=== PATIENT | female | born 1940 | race Hispanic/Latino ===

== ENCOUNTER 2018-08-09 09:30 | Emergency (ER) | payer MEDICARE | END 2018-08-09 11:11 | disposition home or self-care (01) | LOC: EDH 09:30 | DX: S00.83XA Contusion of other part of head, initial encounter (principal); I10 Essential (primary) hypertension; E78.5 Hyperlipidemia, unspecified; E11.9 Type 2 diabetes mellitus without complications; Z72.0 Tobacco use; Z88.6 Allergy status to analgesic agent; W18.39XA Other fall on same level, initial encounter; Y93.01 Activity, walking, marching and hiking; Y92.89 Other specified places as the place of occurrence of the external cause; Y99.8 Other external cause status | CPT/HCPCS: 70450 ==

== ENCOUNTER 2018-08-09 11:56 | Emergency (ER) | payer MEDICARE ==
[2018-08-09] MEDS ORDERED: ONDANSETRON ODT 4 MG TAB ONE (12:12)
== END 2018-08-09 13:32 | disposition home or self-care (01) ==
LOC: EDH 11:56
DX: R11.2 Nausea with vomiting, unspecified (principal); I10 Essential (primary) hypertension; E11.9 Type 2 diabetes mellitus without complications; E78.5 Hyperlipidemia, unspecified; Z88.6 Allergy status to analgesic agent

== ENCOUNTER → 2018-08-26 | Outpatient (CLI) | payer MEDICARE ==
[~2018-08-26] MED LIST: ALLO300T2 PO; ASPI-555 PO; ATEN100T PO; CHOL500050 PO; FENO145T37 PO; HYDR25TA PO; LEVO100T12 PO; LOSA25TA16 PO; LOVA10TA2 PO; PREG75 PO; SITA1TAB2 PO; VICOPROFEN PO
== END | disposition home or self-care (01) ==
LOC: RAH 10:36
PROVIDERS: ATTEND Neurological Surgery
DX: I62.00 Nontraumatic subdural hemorrhage, unspecified (principal)
CPT/HCPCS: 70450

== ENCOUNTER 2022-01-09 18:44 | Emergency (ER) | payer MEDICARE ==
[~2022-01-09] VITALS: Ht 152.4 cm; Wt 63.5 kg
[~2022-01-09 18:44] MED LIST changes: -ASPI-555 PO; -ATEN100T PO; +CALC-1105 PO; +CARB30DR OP; +CEFU500T67 PO; -CHOL500050 PO; +ESOM20CA31 PO; +FENO145T26 PO; -FENO145T37 PO; +FLUT110HFA IH; -HYDR25TA PO; +HYPR10GE5 OP; -LEVO100T12 PO; +LEVO88CA4 PO; -LOSA25TA16 PO; -LOVA10TA2 PO; +PROP8DRO2 OP; -SITA1TAB2 PO; -VICOPROFEN PO
[2022-01-09] MEDS ORDERED: ASPIRIN 81MG CHEW TAB PO ONE (20:30)
[2022-01-09 20:43] LABS: BASOPHILS % (AUTO) 0.6 % (0.0-5.0); EOSINOPHILS % (AUTO) 2.6 % (0.0-8.0); LYMPHOCYTES % (AUTO) 40.4 % (21.0-51.0); MEAN CORPUSCULAR HEMOGLOBIN 32.1 pg (27.0-33.0); MEAN CORPUSCULAR HGB CONC 33.3 g/dL (32.0-36.0); MEAN CORPUSCULAR VOLUME 96.2 fL (79-99); MONOCYTES % (AUTO) 7.3 % (3.0-13.0); NEUTROPHILS % (AUTO) 48.5 % (40.0-77.0); PLATELET COUNT (AUTO) 147 K/uL (130-400); RED BLOOD CELL COUNT(AUTO) 4.68 MIL/uL (4.00-5.50); RED CELL DISTRIBUTION WIDTH 16.2 % (11.0-15.5); WHITE BLOOD COUNT (AUTO) 5.3 K/uL (4.8-10.8)
[2022-01-09 20:53] LABS: CREATININE 0.8 mg/dL (0.5-1.5)
[2022-01-09 21:03] LABS: ALBUMIN 2.7 g/dL (3.5-5.0); BILIRUBIN,TOTAL 2.9 mg/dL (0.2-1.0); TOTAL PROTEIN, SERUM 7.2 g/dL (6.0-8.3)
[2022-01-09] MEDS ORDERED: HYDRALAZINE 20MG/ML VIAL ONE (22:00)
[2022-01-09] MEDS ORDERED: HYDRALAZINE 20MG/ML VIAL IV ONE (22:30)
[2022-01-09 22:54] VITALS: BP 148/49
[2022-01-09] MEDS ORDERED: AMLO-258 PO (23:32)
== END 2022-01-09 23:51 | disposition home or self-care (01) ==
LOC: EDH 18:44
DX: I10 Essential (primary) hypertension (principal); R51.9 Headache, unspecified; E78.00 Pure hypercholesterolemia, unspecified; Z88.6 Allergy status to analgesic agent; Z79.899 Other long term (current) drug therapy
CPT/HCPCS: 36415; 70450; 71045; 80053; 84484; 85025; 93005; 96374; 99285; J0360

== ENCOUNTER 2022-12-13 18:25 | Emergency (ER) | payer MEDICARE ==
[~2022-12-13] VITALS: Ht 157.5 cm; Wt 58.5 kg
[~2022-12-13 18:25] MED LIST changes: +ALBUHFA IH; -ALLO300T2 PO; +AMLO-258 PO; +ATEN100T PO; +BALS60OI TP; -CEFU500T67 PO; -ESOM20CA31 PO; +FLUT16H EN; +FURO20TA4 PO; +HYDR25TA PO; -HYPR10GE5 OP; +LACT PO; +LOSA100T58 PO; +PANT40TA PO; -PROP8DRO2 OP; +PROP8DRO2 OU
[2022-12-13 20:16] LABS: BASOPHILS % (AUTO) 1.1 % (0.0-5.0); EOSINOPHILS % (AUTO) 5.4 % (0.0-8.0); HEMATOCRIT 38.4 % (36-48); LYMPHOCYTES % (AUTO) 41.4 % (21.0-51.0); MEAN CORPUSCULAR HEMOGLOBIN 32.1 pg (27.0-33.0); MEAN CORPUSCULAR HGB CONC 33.6 g/dL (32.0-36.0); MEAN CORPUSCULAR VOLUME 95.5 fL (79-99); MONOCYTES % (AUTO) 7.8 % (3.0-13.0); PLATELET COUNT (AUTO) 97 K/uL (130-400); RED BLOOD CELL COUNT(AUTO) 4.02 MIL/uL (4.00-5.50); RED CELL DISTRIBUTION WIDTH 16.6 % (11.0-15.5); WHITE BLOOD COUNT (AUTO) 3.7 K/uL (4.8-10.8)
[2022-12-13 20:26] LABS: APPEARANCE,URINE CLEAR (CLEAR); BILIRUBIN,URINE NEGATIVE (NEGATIVE); COLOR,URINE LIGHT-YELLOW (YELLOW); GLUCOSE, URINE (UA) NEGATIVE (NEGATIVE); KETONES,URINE NEGATIVE (NEGATIVE); LEUKOCYTE ESTERASE ,URINE 25 Leu/uL (NEGATIVE); NITRATE,URINE NEGATIVE (NEGATIVE); OCCULT BLOOD,URINE NEGATIVE (NEGATIVE); PROTEIN,URINE NEGATIVE (NEGATIVE); UROBILINOGEN,URINE 0.2 mg/dL (0.2-1.0)
[2022-12-13 20:26] LABS: CREATININE 1.1 mg/dL (0.5-1.5); POTASSIUM 3.9 mmol/L (3.5-5.1)
[2022-12-13 20:30] LABS: BACTERIA,URINE MOD /HPF (None Seen); RBC,URINE 0-1 /HPF (0-1); SQUAMOUS EPITHELIAL CELL,UR RARE /HPF (0-2)
[2022-12-13 20:33] LABS: ALBUMIN 2.6 g/dL (3.5-5.0); TOTAL PROTEIN, SERUM 7.4 g/dL (6.0-8.3)
[2022-12-13] MEDS ORDERED: CEFTRIAXONE 1G VIAL IV ONE (23:00)
[2022-12-13] MEDS ORDERED: NITR100C4 PO (23:51)
[2022-12-13 23:54] VITALS: BP 136/69
== END 2022-12-14 00:06 | disposition home or self-care (01) ==
LOC: EDH 18:25
DX: N39.0 Urinary tract infection, site not specified (principal); E03.9 Hypothyroidism, unspecified; I11.0 Hypertensive heart disease with heart failure; I50.9 Heart failure, unspecified; Z20.822 Contact with and (suspected) exposure to COVID-19; Z79.899 Other long term (current) drug therapy; Z88.8 Allergy status to other drugs, medicaments and biological substances
CPT/HCPCS: 99284; 96374; 87635; 84484; 80053; 85025; 87077; 87088; 87186; 81001; 36415; 93005; C9803; J0696

== ENCOUNTER 2023-04-02 23:04 | Emergency (ER) | payer MEDICARE ==
[~2023-04-02] VITALS: Ht 152.4 cm; Wt 58.1 kg
[~2023-04-02 23:04] MED LIST changes: +AMLO-257 PO; -AMLO-258 PO; -ATEN100T PO; -BALS60OI TP; -CALC-1105 PO; -HYDR25TA PO; -LACT PO; -LOSA100T58 PO; +LOSA100T59 PO; +METO-408 PO
[2023-04-03 00:32] VITALS: BP 188/72; PULSE 77; RESP 18; O2SAT 96
[2023-04-03 01:11] LABS: BASOPHILS % (AUTO) 0.5 % (0.0-5.0); EOSINOPHILS % (AUTO) 3.2 % (0.0-8.0); HEMATOCRIT 38.6 % (36-48); LYMPHOCYTES % (AUTO) 32.9 % (21.0-51.0); MEAN CORPUSCULAR HEMOGLOBIN 31.7 pg (27.0-33.0); MEAN CORPUSCULAR HGB CONC 33.4 g/dL (32.0-36.0); MEAN CORPUSCULAR VOLUME 94.8 fL (79-99); MONOCYTES % (AUTO) 9.2 % (3.0-13.0); PLATELET COUNT (AUTO) 123 K/uL (130-400); RED BLOOD CELL COUNT(AUTO) 4.07 MIL/uL (4.00-5.50); RED CELL DISTRIBUTION WIDTH 15.3 % (11.0-15.5); WHITE BLOOD COUNT (AUTO) 5.6 K/uL (4.8-10.8)
[2023-04-03 01:17] LABS: CREATININE 0.9 mg/dL (0.5-1.5); POTASSIUM 3.5 mmol/L (3.5-5.1)
[2023-04-03 01:22] LABS: ALBUMIN 2.3 g/dL (3.5-5.0); TOTAL PROTEIN, SERUM 6.2 g/dL (6.0-8.3)
== END 2023-04-03 02:45 | disposition home or self-care (01) ==
LOC: EDH 23:04
DX: I10 Essential (primary) hypertension (principal); F03.90 Unspecified dementia, unspecified severity, without behavioral disturbance, psychotic disturbance, mood disturbance, and anxiety; R42 Dizziness and giddiness; Z79.51 Long term (current) use of inhaled steroids; Z79.899 Other long term (current) drug therapy
CPT/HCPCS: 36415; 80053; 84484; 85025; 93005

== ENCOUNTER 2023-04-22 09:00 | Emergency (ER) | payer MEDICARE ==
[2023-04-23 08:02] LABS: CREATININE 0.9 mg/dL (0.5-1.5); POTASSIUM 3.1 mmol/L (3.5-5.1)
[2023-04-23 08:03] LABS: EOSINOPHILS % (AUTO) 5.5 % (0.0-8.0); HEMATOCRIT 37.3 % (36-48); LYMPHOCYTES % (AUTO) 43.1 % (21.0-51.0); MEAN CORPUSCULAR HEMOGLOBIN 31.8 pg (27.0-33.0); MEAN CORPUSCULAR VOLUME 93.5 fL (79-99); MONOCYTES % (AUTO) 8.5 % (3.0-13.0); NEUTROPHILS % (AUTO) 41.6 % (40.0-77.0); PLATELET COUNT (AUTO) 99 K/uL (130-400); RED BLOOD CELL COUNT(AUTO) 3.99 MIL/uL (4.00-5.50); RED CELL DISTRIBUTION WIDTH 15.5 % (11.0-15.5)
[2023-04-23 08:07] LABS: BASOPHILS # (AUTO) 0.04 K/uL (0.00-0.20); EOSINOPHILS # (AUTO) 0.22 K/uL (0.00-0.70); IMMATURE GRANULOCYTE ABSOLUTE 0.01 K/uL (0-1); LYMPHOCYTES # (AUTO) 1.7 K/uL (1.0-4.8); MONOCYTES # (AUTO) 0.3 K/uL (0.1-1.0); NEUTROPHILS # (AUTO) 1.7 K/uL (1.8-7.7)
== END 2023-04-22 11:45 | disposition home or self-care (01) ==
LOC: EDH 09:00
DX: E72.20 Disorder of urea cycle metabolism, unspecified (principal); R41.0 Disorientation, unspecified; E87.6 Hypokalemia; I10 Essential (primary) hypertension; E78.5 Hyperlipidemia, unspecified
CPT/HCPCS: 36415; 80048; 82140; 82948; 84484; 85025; 93005

== ENCOUNTER 2023-05-18 10:17 | Emergency (ER) | payer MEDICARE ==
[~2023-05-18] VITALS: Ht 152.4 cm; Wt 58.1 kg
[2023-05-18 11:26] VITALS: BP 116/87; PULSE 68; RESP 18; O2SAT 97
[2023-05-18 11:50] LABS: APPEARANCE,URINE CLOUDY (CLEAR); BILIRUBIN,URINE NEGATIVE (NEGATIVE); COLOR,URINE YELLOW (YELLOW); GLUCOSE, URINE (UA) NEGATIVE (NEGATIVE); KETONES,URINE NEGATIVE (NEGATIVE); LEUKOCYTE ESTERASE ,URINE 500 Leu/uL (NEGATIVE); NITRATE,URINE NEGATIVE (NEGATIVE); PROTEIN,URINE NEGATIVE (NEGATIVE)
[2023-05-18 11:52] LABS: ADD UA MICROSCOPIC YES
[2023-05-18 11:54] LABS: BACTERIA,URINE RARE /HPF (None Seen); SQUAMOUS EPITHELIAL CELL,UR RARE /HPF (0-2); UNCLASSIFIED CRYSTAL 4 /HPF (None Seen); WBC CLUMP FEW /HPF (0-1); WBC,URINE TNTC /HPF (0-1); YEAST,URINE BUDDING MOD /HPF (None Seen)
[2023-05-18 14:22] LABS: BASOPHILS # (AUTO) 0.02 K/uL (0.00-0.20); BASOPHILS % (AUTO) 0.5 % (0.0-5.0); EOSINOPHILS % (AUTO) 2.7 % (0.0-8.0); HEMATOCRIT 33.1 % (36-48); IMMATURE GRANULOCYTE ABSOLUTE 0.01 K/uL (0-1); LYMPHOCYTES # (AUTO) 1.3 K/uL (1.0-4.8); LYMPHOCYTES % (AUTO) 35.5 % (21.0-51.0); MEAN CORPUSCULAR HGB CONC 34.4 g/dL (32.0-36.0); MONOCYTES # (AUTO) 0.3 K/uL (0.1-1.0); MONOCYTES % (AUTO) 7.7 % (3.0-13.0); NEUTROPHILS % (AUTO) 53.3 % (40.0-77.0); PLATELET COUNT (AUTO) 102 K/uL (130-400); RED BLOOD CELL COUNT(AUTO) 3.56 MIL/uL (4.00-5.50); RED CELL DISTRIBUTION WIDTH 16.5 % (11.0-15.5); WHITE BLOOD COUNT (AUTO) 3.7 K/uL (4.8-10.8)
[2023-05-18 14:34] LABS: CREATININE 0.9 mg/dL (0.5-1.5); POTASSIUM 3.6 mmol/L (3.5-5.1)
[2023-05-18 14:43] LABS: ALBUMIN 2.3 g/dL (3.5-5.0); TOTAL PROTEIN, SERUM 5.9 g/dL (6.0-8.3)
[2023-05-18] MEDS ORDERED: CEPH500B PO (14:56)
== END 2023-05-18 16:19 | disposition home or self-care (01) ==
LOC: EDH 10:17
DX: N39.0 Urinary tract infection, site not specified (principal); I10 Essential (primary) hypertension; E78.00 Pure hypercholesterolemia, unspecified; I21.9 Acute myocardial infarction, unspecified; Z79.899 Other long term (current) drug therapy; Z88.8 Allergy status to other drugs, medicaments and biological substances
CPT/HCPCS: 36415; 80053; 81001; 82550; 84484; 85025; 87077; 87088; 87186; 93005

== ENCOUNTER 2023-08-13 16:20 | Emergency (ER) | payer MEDICARE ==
[~2023-08-13] VITALS: Ht 152.4 cm; Wt 56.2 kg
[~2023-08-13 16:20] MED LIST changes: +CEPH500B PO
[2023-08-13] MEDS ORDERED: IPRATROPIUM/ALBUTEROL SULFATE 3 ML SOLUTION IH ONE (16:30)
[2023-08-13 17:04] VITALS: PULSE 69; RESP 18
[2023-08-13 17:18] LABS: HEMATOCRIT 37.3 % (36-48); MEAN CORPUSCULAR HEMOGLOBIN 31.9 pg (27.0-33.0); MEAN CORPUSCULAR VOLUME 96.9 fL (79-99); PLATELET COUNT (AUTO) 80 K/uL (130-400); RED BLOOD CELL COUNT(AUTO) 3.85 MIL/uL (4.00-5.50); WHITE BLOOD COUNT (AUTO) 4.7 K/uL (4.8-10.8)
[2023-08-13 17:27] LABS: SARS-CoV-2, RNA, NAAT NEGATIVE SARS CoV-2 (NEGATIVE)
[2023-08-13 17:32] LABS: INFLUENZA TYPE A Negative For Type A (NEGATIVE); INFLUENZA TYPE B Negative For Type B (NEGATIVE)
[2023-08-13 17:46] LABS: POTASSIUM 3.8 mmol/L (3.5-5.1)
[2023-08-13 17:51] LABS: ALBUMIN 2.5 g/dL (3.5-5.0); BILIRUBIN,TOTAL 3.2 mg/dL (0.2-1.0)
[2023-08-13 17:52] LABS: RAPID GROUP A STREP positive (NEGATIVE)
[2023-08-13] MEDS ORDERED: AMOX500T2 PO (19:21)
[2023-08-13 19:43] VITALS: BP 122/62; PULSE 62; RESP 17; O2SAT 98
== END 2023-08-13 19:49 | disposition home or self-care (01) ==
LOC: EDH 16:20
DX: R06.02 Shortness of breath (principal); I50.32 Chronic diastolic (congestive) heart failure; J02.0 Streptococcal pharyngitis; E78.00 Pure hypercholesterolemia, unspecified; I11.0 Hypertensive heart disease with heart failure; Z79.51 Long term (current) use of inhaled steroids; Z79.899 Other long term (current) drug therapy; Z20.822 Contact with and (suspected) exposure to COVID-19
CPT/HCPCS: 99285; 71045; 87635; 84484; 80053; 83880; 85027; 87880; 87804 ×2; 36415; 93005; 94640; C9803

== ENCOUNTER 2023-08-26 07:08 | Inpatient (IN) | payer MEDICARE ==
[2023-08-26] VITALS (10 sets, daily range): BP systolic 130–167; BP diastolic 45–86; PULSE 69–114; RESP 16–22; O2SAT 97
[~2023-08-26] VITALS: Ht 152.4 cm; Wt 57.8 kg
[~2023-08-26 07:08] MED LIST changes: +AMOX500T2 PO
[2023-08-26] MEDS ORDERED: ENOXAPARIN SODIUM 40 MG/0.4 ML SYRINGE SQ ONE (07:30)
[2023-08-26] MEDS ORDERED: CEFTRIAXONE 2GM VIAL IVPB ONE (07:30)
[2023-08-26] MEDS ORDERED: NITROGLYCERIN 1GM OINT 1 INCH/1GM TD ONE (07:30)
[2023-08-26] MEDS ORDERED: ASPIRIN 325MG TAB PO ONE (07:30)
[2023-08-26] MEDS ORDERED: IPRATROPIUM/ALBUTEROL SULFATE 3 ML SOLUTION IH ONE (07:30)
[2023-08-26 08:20] LABS: ABG BASE EXCESS -2.5 mmol/L (-2.0-3.0); ABG HCO3 20.8 mmol/L (21.0-28.0); ABG OXYGEN SATURATION 92.8 % (95.0-99.0); ABG PCO2 32 mmHg (32-45); ABG PH 7.429 (7.35-7.450); DEVICE COMMENT RR; PO2, ARTERIAL BG 62.6 mmHg (83.0-108.0); VENT MODE, BG NC (ROOM AIR)
[2023-08-26 08:24] LABS: INR 1.54 (0.85-1.15); PROTHROMBIN TIME 17.4 SEC (9.6-11.6)
[2023-08-26 08:25] LABS: PARTIAL THROMBOPLASTIN TIME 33.8 SEC (26.3-35.5)
[2023-08-26 08:35] LABS: B-TYPE NATRIURETIC PEPTIDE 319 pg/mL (0-100); BASOPHILS # (AUTO) 0.05 K/uL (0.00-0.20); BASOPHILS % (AUTO) 0.9 % (0.0-5.0); EOSINOPHILS % (AUTO) 5.3 % (0.0-8.0); HEMATOCRIT 33.4 % (36-48); IMMATURE GRANULOCYTE ABSOLUTE 0.04 K/uL (0-1); LYMPHOCYTES # (AUTO) 1.1 K/uL (1.0-4.8); LYMPHOCYTES % (AUTO) 19.4 % (21.0-51.0); MEAN CORPUSCULAR HEMOGLOBIN 32.2 pg (27.0-33.0); MEAN CORPUSCULAR HGB CONC 33.2 g/dL (32.0-36.0); MEAN CORPUSCULAR VOLUME 96.8 fL (79-99); MONOCYTES # (AUTO) 0.3 K/uL (0.1-1.0); NEUTROPHILS # (AUTO) 3.8 K/uL (1.8-7.7); NEUTROPHILS % (AUTO) 67.7 % (40.0-77.0); PLATELET COUNT (AUTO) 49 K/uL (130-400); RED BLOOD CELL COUNT(AUTO) 3.45 MIL/uL (4.00-5.50); RED CELL DISTRIBUTION WIDTH 18.7 % (11.0-15.5); WHITE BLOOD COUNT (AUTO) 5.6 K/uL (4.8-10.8)
[2023-08-26 08:49] LABS: BILIRUBIN,TOTAL 3.7 mg/dL (0.2-1.0); TOTAL PROTEIN, SERUM 6.1 g/dL (6.0-8.3)
[2023-08-26] MEDS ORDERED: POTASSIUM BICARB/CIT AC 25 MEQ TABLET.EFF PO ONE (09:00)
[2023-08-26 10:50] LABS: APPEARANCE,URINE CLOUDY (CLEAR); BILIRUBIN,URINE NEGATIVE (NEGATIVE); COLOR,URINE YELLOW (YELLOW); GLUCOSE, URINE (UA) NEGATIVE (NEGATIVE); KETONES,URINE NEGATIVE (NEGATIVE); LEUKOCYTE ESTERASE ,URINE 75 Leu/uL (NEGATIVE); NITRATE,URINE NEGATIVE (NEGATIVE); OCCULT BLOOD,URINE SMALL (NEGATIVE); PH,URINE 5.5 (5.0-8.0); PROTEIN,URINE 20 mg/dL (NEGATIVE); UROBILINOGEN,URINE 0.2 mg/dL (0.2-1.0)
[2023-08-26 10:55] LABS: ADD UA MICROSCOPIC YES
[2023-08-26 11:00] LABS: BACTERIA,URINE FEW /HPF (None Seen); MUCUS,URINE RARE LPF (None Seen); SQUAMOUS EPITHELIAL CELL,UR RARE /HPF (0-2); TRANSITIONAL EPI CELLS,URINE FEW /HPF (None Seen); WBC,URINE 26-50 /HPF (0-1)
[2023-08-26] MEDS ORDERED: AMLODIPINE 5 MG TAB PO ONE (11:30)
[2023-08-26] MEDS ORDERED: AZITHROMYCIN 250 MG TABLET PO ONE (11:30)
[2023-08-26] MEDS ORDERED: 0.9%NACL 1000ML 500 ML IV ONE (12:30)
[2023-08-26 12:31] LABS: THYROID STIMULATING HORMONE 3.21 uIU/mL (0.36-3.74)
[2023-08-26] MEDS ORDERED: SODIUM CHLORIDE 3% FOR INHALATION 4 ML/AMP VIAL.NEB IH ONE ×2 (12:36→23:30)
[2023-08-26] MEDS: IPRATROPIUM/ALBUTEROL SULFATE 3 ML SOLUTION IH SCH ×3 (12:47→23:39)
[2023-08-26] MEDS: FUROSEMIDE 40 MG TABLET PO SCH ×2 (13:10→20:14)
[2023-08-26] MEDS ORDERED: HYDRALAZINE 20MG/ML VIAL IV PRN (16:30)
[2023-08-26] MEDS ORDERED: LOSARTAN 50 MG TABLET PO SCH (16:30)
[2023-08-26 17:19] LABS: CREATININE 1.1 mg/dL (0.5-1.5); MAGNESIUM 1.3 mg/dL (1.80-2.40); POTASSIUM 3.6 mmol/L (3.5-5.1)
[2023-08-26] MEDS: MAGNESIUM 2GM PREMIX 50ML 50 ML IV PRN ×2 (18:35→22:50)
[2023-08-26] MEDS ORDERED: LACTULOSE 20 GM/30 ML UDCUP PO PRN (21:00)
[2023-08-27] VITALS (14 sets, daily range): BP systolic 93–133; BP diastolic 44–58; PULSE 92–119; RESP 16–20; O2SAT 95–98
[2023-08-27] MEDS ORDERED: GUAIFENESIN-DM 200/20 MG 10 ML PO PRN (00:48)
[2023-08-27] MEDS: FUROSEMIDE 40 MG TABLET PO SCH ×3 (05:38→21:36)
[2023-08-27] MEDS ORDERED: SODIUM CHLORIDE 3% FOR INHALATION 4 ML/AMP VIAL.NEB IH ONE ×2 (06:10→11:01)
[2023-08-27] MEDS ORDERED: AMLO-257 PO (06:18)
[2023-08-27] MEDS ORDERED: ROPI2TAB29 PO (06:18)
[2023-08-27] MEDS ORDERED: METO-408 PO (06:18)
[2023-08-27] MEDS ORDERED: LOSA50TA64 PO (06:18)
[2023-08-27] MEDS ORDERED: NITR0.4T50 SL (06:18)
[2023-08-27] MEDS ORDERED: ALBU18HF7 IH (06:18)
[2023-08-27] MEDS ORDERED: SYMB8060 IH (06:18)
[2023-08-27] MEDS ORDERED: FURO20TA4 PO (06:18)
[2023-08-27] MEDS ORDERED: PREG75CA76 PO (06:18)
[2023-08-27] MEDS ORDERED: FENO145T26 PO (06:18)
[2023-08-27] MEDS ORDERED: FLUT110HFA IH ×2 (06:18)
[2023-08-27] MEDS ORDERED: LEVO88CA4 PO (06:18)
[2023-08-27] MEDS ORDERED: RIFA550T PO (06:18)
[2023-08-27] MEDS ORDERED: LACT10SO95 PO (06:18)
[2023-08-27] MEDS ORDERED: PANT20TA18 PO (06:18)
[2023-08-27] MEDS: IPRATROPIUM/ALBUTEROL SULFATE 3 ML SOLUTION IH SCH ×2 (07:05→11:35)
[2023-08-27 08:36] LABS: HEMATOCRIT 28.8 % (36-48); MEAN CORPUSCULAR HEMOGLOBIN 32.5 pg (27.0-33.0); MEAN CORPUSCULAR HGB CONC 33.3 g/dL (32.0-36.0); MEAN CORPUSCULAR VOLUME 97.6 fL (79-99); RED BLOOD CELL COUNT(AUTO) 2.95 MIL/uL (4.00-5.50); RED CELL DISTRIBUTION WIDTH 18.7 % (11.0-15.5); WHITE BLOOD COUNT (AUTO) 4.7 K/uL (4.8-10.8)
[2023-08-27 08:45] LABS: CREATININE 1.1 mg/dL (0.5-1.5); POTASSIUM 3.1 mmol/L (3.5-5.1)
[2023-08-27 08:49] LABS: ALBUMIN 1.9 g/dL (3.5-5.0); BILIRUBIN,TOTAL 3.2 mg/dL (0.2-1.0); MAGNESIUM 2.4 mg/dL (1.80-2.40); TOTAL PROTEIN, SERUM 5.6 g/dL (6.0-8.3)
[2023-08-27] MEDS ORDERED: NON-FORMULARY MEDICATION 1 EACH (Ropinirole HCl 2 MG) PO SCH (09:00)
[2023-08-27] MEDS ORDERED: NITROGLYCERIN 0.4 MG SL TAB SL SCH (09:00)
[2023-08-27] MEDS: LOSARTAN 50 MG TABLET PO SCH (10:07)
[2023-08-27] MEDS: RIFAXIMIN 550 MG TABLET PO SCH ×2 (10:07→21:36)
[2023-08-27] MEDS: ROPINIROLE HCL 1 MG TABLET PO SCH (10:08)
[2023-08-27] MEDS: AMLODIPINE 5 MG TAB PO SCH (10:08)
[2023-08-27] MEDS: FLUTICASONE PROPIONATE IH SCH ×3 (10:08→22:36)
[2023-08-27] MEDS: PANTOPRAZOLE 40 MG TAB DR PO SCH (10:08)
[2023-08-27] MEDS: FENOFIBRATE NANOCRYSTALLIZED 145 MG TAB PO SCH (10:08)
[2023-08-27] MEDS: CEFTRIAXONE 2GM VIAL IVPB SCH (10:09)
[2023-08-27] MEDS: SYMBICORT 80-4.5 MCG INHALER IH SCH ×2 (10:09→22:05)
[2023-08-27] MEDS ORDERED: POTASSIUM CHLORIDE 20MEQ/100ML 100 ML IV ONE (10:30)
[2023-08-27] MEDS ORDERED: KCL 20 MEQ ERTAB PO ONE (10:30)
[2023-08-27] MEDS ORDERED: ALBUTEROL SULFATE IH SCH (12:00)
[2023-08-27] MEDS: AZITHROMYCIN 250 MG TABLET PO SCH (13:09)
[2023-08-27 13:49] LABS: SARS-CoV-2, RNA, NAAT NEGATIVE SARS CoV-2 (NEGATIVE)
[2023-08-27 13:52] LABS: INFLUENZA TYPE A Negative For Type A (NEGATIVE); INFLUENZA TYPE B Negative For Type B (NEGATIVE)
[2023-08-27] MEDS: IPRATROPIUM 0.5 MG/2.5 ML INH IH SCH (19:49)
[2023-08-27] MEDS ORDERED: KCL 20 MEQ ERTAB PO PRN (21:30)
[2023-08-27] MEDS ORDERED: DEXTROSE 50%-WATER 50 ML DISP.SYRIN IV PRN (21:30)
[2023-08-27] MEDS ORDERED: GLUCAGON 1MG KIT 1 MG ML IM PRN (21:30)
[2023-08-27] MEDS ORDERED: POTASSIUM CHLORIDE 20MEQ/100ML 100 ML IV PRN ×2 (21:30)
[2023-08-28] VITALS (19 sets, daily range): BP systolic 98–134; BP diastolic 49–62; PULSE 66–99; RESP 16–24; O2SAT 88–96
[2023-08-28] MEDS: IPRATROPIUM 0.5 MG/2.5 ML INH IH SCH ×6 (00:04→19:39)
[2023-08-28] MEDS: ACETYLCYSTEINE 10% 100MG/ML 4ML VIAL IH SCH ×3 (00:04→19:39)
[2023-08-28] MEDS: POTASSIUM CHLORIDE 10% ELIXIR 20 MEQ/15 ML UDCUP PO PRN ×2 (01:14→02:30)
[2023-08-28 04:54] LABS: HEMATOCRIT 27.3 % (36-48); MEAN CORPUSCULAR HEMOGLOBIN 32.6 pg (27.0-33.0); MEAN CORPUSCULAR HGB CONC 32.6 g/dL (32.0-36.0); RED BLOOD CELL COUNT(AUTO) 2.73 MIL/uL (4.00-5.50); RED CELL DISTRIBUTION WIDTH 18.6 % (11.0-15.5); WHITE BLOOD COUNT (AUTO) 3.3 K/uL (4.8-10.8)
[2023-08-28 05:10] LABS: ALBUMIN 1.7 g/dL (3.5-5.0); CREATININE 1.1 mg/dL (0.5-1.5); MAGNESIUM 1.9 mg/dL (1.80-2.40); POTASSIUM 4.5 mmol/L (3.5-5.1); TOTAL PROTEIN, SERUM 5.1 g/dL (6.0-8.3)
[2023-08-28] MEDS: LEVOTHYROXINE 88 MCG TABLET PO SCH (06:27)
[2023-08-28] MEDS: FUROSEMIDE 40 MG TABLET PO SCH ×3 (06:28→21:47)
[2023-08-28] MEDS: MAGNESIUM 2GM PREMIX 50ML 50 ML IV PRN (06:29)
[2023-08-28] MEDS ORDERED: NON-FORMULARY MEDICATION 1 EACH (Levothyroxine Sodium (Levothyroxine) 88 MCG) PO SCH (07:30)
[2023-08-28] MEDS: METOPROLOL SUCCINATE 25 MG TAB.SR.24H PO SCH (10:12)
[2023-08-28] MEDS: AZITHROMYCIN 250 MG TABLET PO SCH (10:12)
[2023-08-28] MEDS: LOSARTAN 50 MG TABLET PO SCH (10:13)
[2023-08-28] MEDS: FENOFIBRATE NANOCRYSTALLIZED 145 MG TAB PO SCH (10:13)
[2023-08-28] MEDS: RIFAXIMIN 550 MG TABLET PO SCH ×2 (10:13→21:47)
[2023-08-28] MEDS: ROPINIROLE HCL 1 MG TABLET PO SCH (10:13)
[2023-08-28] MEDS: PANTOPRAZOLE 40 MG TAB DR PO SCH (10:13)
[2023-08-28] MEDS: PREGABALIN 75 MG CAPSULE PO SCH (10:13)
[2023-08-28] MEDS: AMLODIPINE 5 MG TAB PO SCH (10:13)
[2023-08-28] MEDS: SYMBICORT 80-4.5 MCG INHALER IH SCH ×2 (10:14→21:51)
[2023-08-28] MEDS: CEFTRIAXONE 2GM VIAL IVPB SCH (10:15)
[2023-08-28] MEDS: FLUTICASONE PROPIONATE IH SCH ×2 (10:18→21:51)
[2023-08-28] MEDS ORDERED: SPIRONOLACTONE 25 MG TAB PO ONE (13:00)
[2023-08-28] MEDS: SPIRONOLACTONE 25 MG TAB PO SCH (21:47)
[2023-08-29] VITALS (14 sets, daily range): BP systolic 104–127; BP diastolic 45–61; PULSE 64–95; RESP 16–22; O2SAT 95–99
[2023-08-29] MEDS: IPRATROPIUM 0.5 MG/2.5 ML INH IH SCH ×6 (01:53→22:01)
[2023-08-29 04:10] LABS: HEMATOCRIT 31.4 % (36-48); MEAN CORPUSCULAR HEMOGLOBIN 32.2 pg (27.0-33.0); MEAN CORPUSCULAR HGB CONC 32.8 g/dL (32.0-36.0); MEAN CORPUSCULAR VOLUME 98.1 fL (79-99); RED BLOOD CELL COUNT(AUTO) 3.2 MIL/uL (4.00-5.50); RED CELL DISTRIBUTION WIDTH 17.8 % (11.0-15.5); WHITE BLOOD COUNT (AUTO) 4.1 K/uL (4.8-10.8)
[2023-08-29 04:32] LABS: ALBUMIN 1.8 g/dL (3.5-5.0); BILIRUBIN,TOTAL 2.2 mg/dL (0.2-1.0); MAGNESIUM 1.9 mg/dL (1.80-2.40); POTASSIUM 3.8 mmol/L (3.5-5.1); TOTAL PROTEIN, SERUM 5.5 g/dL (6.0-8.3)
[2023-08-29] MEDS: LEVOTHYROXINE 88 MCG TABLET PO SCH (06:23)
[2023-08-29] MEDS: FUROSEMIDE 40 MG TABLET PO SCH ×3 (06:23→22:01)
[2023-08-29] MEDS: ACETYLCYSTEINE 10% 100MG/ML 4ML VIAL IH SCH ×2 (06:52→18:16)
[2023-08-29] MEDS: PREGABALIN 75 MG CAPSULE PO SCH (08:35)
[2023-08-29] MEDS: PANTOPRAZOLE 40 MG TAB DR PO SCH (08:36)
[2023-08-29] MEDS: AMLODIPINE 5 MG TAB PO SCH (08:36)
[2023-08-29] MEDS: SPIRONOLACTONE 25 MG TAB PO SCH ×2 (08:36→20:15)
[2023-08-29] MEDS: METOPROLOL SUCCINATE 25 MG TAB.SR.24H PO SCH (08:36)
[2023-08-29] MEDS: LOSARTAN 50 MG TABLET PO SCH (08:36)
[2023-08-29] MEDS: RIFAXIMIN 550 MG TABLET PO SCH ×2 (08:36→20:12)
[2023-08-29] MEDS: FENOFIBRATE NANOCRYSTALLIZED 145 MG TAB PO SCH (08:36)
[2023-08-29] MEDS: ROPINIROLE HCL 1 MG TABLET PO SCH (08:36)
[2023-08-29] MEDS: CEFTRIAXONE 2GM VIAL IVPB SCH (08:37)
[2023-08-29] MEDS: SYMBICORT 80-4.5 MCG INHALER IH SCH ×2 (08:51→22:01)
[2023-08-29] MEDS: FLUTICASONE PROPIONATE IH SCH ×2 (08:52→22:01)
[2023-08-29] MEDS: AZITHROMYCIN 250 MG TABLET PO SCH (12:40)
[2023-08-29] MEDS ORDERED: FUROSEMIDE 40MG VIAL IV STA (13:57)
[2023-08-29] MEDS ORDERED: IPRATROPIUM/ALBUTEROL SULFATE 3 ML SOLUTION IH SCH (17:00)
[2023-08-29] MEDS ORDERED: IPRATROPIUM/ALBUTEROL SULFATE 3 ML SOLUTION IH ONE (17:02)
[2023-08-29 17:03] LABS: ABG BASE EXCESS 1.2 mmol/L (-2.0-3.0); ABG HCO3 26.2 mmol/L (21.0-28.0); ABG OXYGEN SATURATION 80.5 % (95.0-99.0); ABG PCO2 43 mmHg (32-45); ABG PH 7.404 (7.35-7.450); PO2, ARTERIAL BG < 45.0 mmHg (83.0-108.0); VENT MODE, BG 4L NC (ROOM AIR)
[2023-08-30] VITALS (15 sets, daily range): BP systolic 96–136; BP diastolic 41–55; PULSE 60–90; RESP 16–20; O2SAT 90–98
[2023-08-30 04:09] LABS: HEMATOCRIT 33.9 % (36-48); MEAN CORPUSCULAR HGB CONC 32.4 g/dL (32.0-36.0); MEAN CORPUSCULAR VOLUME 98.5 fL (79-99); RED BLOOD CELL COUNT(AUTO) 3.44 MIL/uL (4.00-5.50); RED CELL DISTRIBUTION WIDTH 17.4 % (11.0-15.5); WHITE BLOOD COUNT (AUTO) 4.7 K/uL (4.8-10.8)
[2023-08-30 04:31] LABS: ALBUMIN 1.7 g/dL (3.5-5.0); MAGNESIUM 1.5 mg/dL (1.80-2.40); POTASSIUM 3.8 mmol/L (3.5-5.1); TOTAL PROTEIN, SERUM 5.4 g/dL (6.0-8.3)
[2023-08-30] MEDS: FUROSEMIDE 40 MG TABLET PO SCH (05:48)
[2023-08-30] MEDS: LEVOTHYROXINE 88 MCG TABLET PO SCH (05:48)
[2023-08-30] MEDS: ACETYLCYSTEINE 10% 100MG/ML 4ML VIAL IH SCH (07:10)
[2023-08-30] MEDS: IPRATROPIUM 0.5 MG/2.5 ML INH IH SCH ×3 (07:10→14:46)
[2023-08-30] MEDS ORDERED: MAGNESIUM 2GM PREMIX 50ML 50 ML IV SCH (08:30)
[2023-08-30] MEDS: FENOFIBRATE NANOCRYSTALLIZED 145 MG TAB PO SCH (08:42)
[2023-08-30] MEDS: ROPINIROLE HCL 1 MG TABLET PO SCH (08:43)
[2023-08-30] MEDS: PREGABALIN 75 MG CAPSULE PO SCH (08:43)
[2023-08-30] MEDS: CEFTRIAXONE 2GM VIAL IVPB SCH (08:43)
[2023-08-30] MEDS: LOSARTAN 50 MG TABLET PO SCH (08:43)
[2023-08-30] MEDS: SPIRONOLACTONE 25 MG TAB PO SCH (08:43)
[2023-08-30] MEDS: METOPROLOL SUCCINATE 25 MG TAB.SR.24H PO SCH (08:43)
[2023-08-30] MEDS: AMLODIPINE 5 MG TAB PO SCH (08:43)
[2023-08-30] MEDS: PANTOPRAZOLE 40 MG TAB DR PO SCH (08:43)
[2023-08-30] MEDS: RIFAXIMIN 550 MG TABLET PO SCH (08:43)
[2023-08-30] MEDS: POTASSIUM CHLORIDE 10% ELIXIR 20 MEQ/15 ML UDCUP PO PRN (08:44)
[2023-08-30] MEDS: FLUTICASONE PROPIONATE IH SCH (08:53)
[2023-08-30] MEDS: SYMBICORT 80-4.5 MCG INHALER IH SCH (08:53)
[2023-08-30] MEDS ORDERED: SPIR25TA6 PO (10:23)
[2023-08-30] MEDS ORDERED: BUME1TAB7 PO (10:23)
[2023-08-30] MEDS: AZITHROMYCIN 250 MG TABLET PO SCH (12:25)
[2023-08-30] MEDS ORDERED: BUMETANIDE 1MG/4ML VIAL IVP SCH (21:00)
== END 2023-08-30 17:45 | disposition hospice, home (50) | DRG 871 ==
LOC: EDH 07:08 → EDHIP 11:30 → 2AH 14:00 → 4AH 08-28 14:55
PROVIDERS: ADMIT Internal Medicine; ATTEND Internal Medicine
PROC: 5A09357 Assistance with Respiratory Ventilation, Less than 24 Consecutive Hours, Continuous Positive Airway Pressure (ICD-10-PCS; principal; 2023-08-29)
PROC: 5A09357 Assistance with Respiratory Ventilation, Less than 24 Consecutive Hours, Continuous Positive Airway Pressure (ICD-10-PCS; 2023-08-30)
DX: A41.9 Sepsis, unspecified organism (principal); I50.33 Acute on chronic diastolic (congestive) heart failure; J18.9 Pneumonia, unspecified organism; J96.01 Acute respiratory failure with hypoxia; E87.0 Hyperosmolality and hypernatremia; J98.11 Atelectasis; E46 Unspecified protein-calorie malnutrition; I11.0 Hypertensive heart disease with heart failure; D69.59 Other secondary thrombocytopenia; I27.20 Pulmonary hypertension, unspecified; E87.6 Hypokalemia; E83.42 Hypomagnesemia; K74.60 Unspecified cirrhosis of liver; Z20.822 Contact with and (suspected) exposure to COVID-19; E03.9 Hypothyroidism, unspecified; R62.7 Adult failure to thrive; K80.20 Calculus of gallbladder without cholecystitis without obstruction; J45.909 Unspecified asthma, uncomplicated; E88.09 Other disorders of plasma-protein metabolism, not elsewhere classified; E78.5 Hyperlipidemia, unspecified; Z66 Do not resuscitate; Z88.6 Allergy status to analgesic agent; Z90.710 Acquired absence of both cervix and uterus; Z68.24 Body mass index [BMI] 24.0-24.9, adult
CPT/HCPCS: 36415; 36600; 71045; 71250; 80048; 80053; 81001; 82140; 82550; 82803; 83036; 83605; 83615; 83735; 83880; 84132; 84145; 84443; 84484; 85025; 85027; 85610; 85730; 86140; 87040; 87071; 87088; 87205; 87635; 87804; 92610; 93005; 93306; 94640; 94660; 94664; 94760; 96365; 96372; G0378; J0696; J1650; J1940; J3475; J3480; J7030; J7608